=== PATIENT | female | born 1980 | race Caucasian/White ===

== ENCOUNTER 2021-05-08 03:59 | Emergency (ER) | payer OTHER ==
[~2021-05-08] VITALS: Ht 160 cm; Wt 56.7 kg
[2021-05-08] MEDS ORDERED: CIPRO500 MG PO (08:44)
[2021-05-08] MEDS ORDERED: PYRIDIUM200 MG PO (08:44)
== END 2021-05-08 09:06 | disposition home or self-care (01) ==
LOC: ER 03:59
DX: N30.80 Other cystitis without hematuria (principal); B96.29 Other Escherichia coli [E. coli] as the cause of diseases classified elsewhere

== ENCOUNTER 2022-06-21 07:00 | Day surgery (SDC) | payer OTHER ==
[~2022-06-21] VITALS: Ht 160 cm; Wt 57.6 kg
[~2022-06-21 07:00] MED LIST: CIPRO500 MG PO; PYRIDIUM200 MG PO
== END 2022-06-21 19:40 | disposition home or self-care (01) ==
LOC: CIR.AMB 07:00
PROVIDERS: ATTEND Specialist
DX: D25.0 Submucous leiomyoma of uterus (principal); Z20.822 Contact with and (suspected) exposure to COVID-19; Z91.018 Allergy to other foods